=== PATIENT | male | born 1960 | race Caucasian/White ===

== ENCOUNTER → 2021-07-13 | Outpatient (CLI) | payer BC ==
--- NOTE | 2021-07-13 21:36 | CT ---
EXAMINATION TYPE: CT urogram wo/w con DATE OF EXAM: 07/13/2021 INDICATION: hematuria CT DLP: 1547.20 mGy.cm Automated Exposure Control for Dose Reduction was Utilized. TECHNIQUE AND CONTRAST: CT scan of the abdomen and pelvis is performed without and with IV Contrast, as per CT urogram protoc ol. The patient was injected with 100 mL of Isovue 300. 3-D reconstruction images were generated on a n independent workstation and reviewed. COMPARISON: None available FINDINGS: No radiodense urinary calculi. No hydroureter or hydronephrosis. 15 mm cyst is seen at the upper pole of right kidney with internal septation/density within. Recommend follow-up CT scan in 6 months. Unr emarkable kidneys otherwise. No definite filling defect within the renal collecting system or the ure ters. No gross ureteric lesion. Markedly enlarged heterogeneous prostate indenting and elevating the urinary bladder base, please cor relate with PSA level. Focal nodule is seen at the left side of the urinary bladder base measuring 6 x 8 mm which could represent a blood clot however urothelial lesion cannot be excluded. Recommend cor relation with urinalysis results (including cytology) and cystoscopy. No other definite urinary bladd er lesion. A few millimetric hepatic hypodensities, possibly representing hepatic cysts. Nondistended gallbladde r, possibly due to incomplete fasting. Unremarkable spleen and pancreas. Right adrenal lesion measuri ng up to 2.3 cm likely representing an adrenal adenoma. Focal thickening of the left adrenal which co uld also represent an adrenal adenoma. Scattered arterial atherosclerotic calcifications. Unremarkable nondistended stomach, duodenum and small bowel. Wall thickening of the colonic splenic f lexure and other segments of the colon, nonspecific, please correlate with colonoscopy results. No keane spicious lymphadenopathy or sizable ascites. Unremarkable lung bases. Marked degenerative changes at L5-S1. No gross aggressive bone lesion. IMPRESSION: 1. Right upper pole complex renal cyst as described above, for 6 months follow-up CT scan or further ultrasound assessment. 2. Markedly enlarged prostate, please correlate with PSA level. 3. Small nodule in the left urinary bladder base as described above, which could represent a blood cl ot however urothelial lesion cannot be excluded, please correlate with urinalysis results (including cytology) and cystoscopy results. Other multiple incidental findings as detailed above.
== END | disposition home or self-care (01) ==
LOC: RADCTMAIN 13:45
PROVIDERS: ATTEND Urology
DX: N28.1 Cyst of kidney, acquired (principal); N40.0 Benign prostatic hyperplasia without lower urinary tract symptoms; N28.89 Other specified disorders of kidney and ureter
CPT/HCPCS: 74178; 74400; Q9967

== ENCOUNTER → 2022-01-11 | Outpatient (CLI) | payer BC ==
[2022-01-11 16:19] LABS: African American GFR (CKD) >90 (>60 ml/min/1.73 sqM); Blood Urea Nitrogen 24 mg/dL (9-20); Non-African American GFR(CKD) >90 (>60 ml/min/1.73 sqM)
--- NOTE | 2022-01-12 14:43 | CT ---
EXAMINATION TYPE: CT abdomen wo/w con CT DLP: 1153 mGycm, Automated exposure control for dose reduction was used. DATE OF EXAM: 01/11/2022 4:39 PM COMPARISON: CT abdomen pelvis most recent from 07/13/2021 CLINICAL INDICATION:Male, 61 years old with history of D41.01; right renal mass TECHNIQUE: Axial CT of the abdomen. Sagittal and coronal reformats [facility] Contrast used:70 mL of Isovue 300 with IV Contrast, Oral contrast used: with Oral Contrast FINDINGS: LOWER CHEST: Chest wall intramuscular lipoma measuring up to 23 mm on the right. ABDOMEN LIVER: Unremarkable GALLBLADDER AND BILE DUCTS: Unremarkable. PANCREAS: Unremarkable. SPLEEN: Unremarkable. ADRENAL GLANDS: Unremarkable. KIDNEYS AND URETERS: A cyst in question in the right upper kidney measures 14 mm which is similar to prior given differences in measuring technique. No significant change from prior. There remains a pos sible thin internal septation. No additional solid masses definitively identified. No evidence of hyd ronephrosis or renal calculus. PELVIS BLADDER: Unremarkable REPRODUCTIVE: Unremarkable. ABDOMEN & PELVIS STOMACH AND BOWEL: No evidence of bowel obstruction. PERITONEUM: No evidence of pneumoperitoneum or free fluid. VASCULATURE: No evidence of aortic aneurysm. Atherosclerosis of the arterial vasculature. MUSCULOSKELETAL: No acute osseous abnormalities, multilevel disc degeneration changes are seen throug hout the spine most pronounced at L4-L5 with endplate spurring, vacuum disc phenomenon and endplate s clerosis. LYMPH NODES: No gross evidence for lymphadenopathy. SOFT TISSUE/ABDOMINAL WALL: Unremarkable IMPRESSION: Stable right upper pole renal cyst with possible thin internal septation versus 2 adjacent cysts. Fol low-up in 6 months is again recommended.
== END | disposition home or self-care (01) ==
LOC: RADCTMAIN 15:18
PROVIDERS: ATTEND Urology
DX: D41.01 Neoplasm of uncertain behavior of right kidney (principal); N28.1 Cyst of kidney, acquired
CPT/HCPCS: 82565; 84520; 74170; 36415; Q9967 ×2

== ENCOUNTER → 2022-07-22 | Outpatient (CLI) | payer BC ==
--- NOTE | 2022-07-23 18:31 | MR ---
EXAMINATION TYPE: MR Prostate wo/w con DATE OF EXAM: 07/22/2022 8:11 AM COMPARISON: CT 03/13/2022. CLINICAL INDICATION:Male, 62 years old with history of R97.20 ELEVATED PROSTATE SPECIFIC ANTIGEN; TECHNIQUE: Multi-planar, multi-sequence imaging of the pelvis is performed prior to and following the uncomplicated administration of bolus intravenous gadolinium. CONTRAST: 8.5 ml Gadavist Interpretive Criteria: PI-RADS v2.1 SERUM PSA: 6.8 04/21/2019 SURGICAL PATHOLOGY: No data available. FINDINGS: Prostatic dimensions: 6.0 x 5.8 x 4.0cm. Ellipsoid Volume:72.88 (PSA density=0.09 ng/mL/mL) CENTRAL GLAND (Central and Transition Zones/CZ+TZ): Multiple bilateral, heterogenous appearing hypertrophic stromal nodules, without suspicious lesion. M edian lobe hypertrophy with protrusion into the base of the bladder. (PI-RADS 2) PERIPHERAL ZONE (PZ): Bilateral linear, indistinct wedgelike areas of low ADC, and low T2 signal, No evidence of masslike a bnormality, or localized perfusional hypervascularity, to further suggest a focus of clinically signi ficant prostate cancer. (PI-RADS 2) SEMINAL VESICLES (SV): Symmetric and unremarkable. PERIPROSTATIC TISSUES: Unremarkable. LYMPH NODES: No enlarged pelvic lymph node. REMAINING PELVIS: Bladder wall is within normal limits given distention. No abnormal free or organized intrapelvic fluid collection. Questionable polyp in the rectum series 501 image 12. Sigmoid colonic diverticula OSSEOUS STRUCTURES: No suspicious osseous abnormality. IMPRESSION: 1. No specific features for high-risk prostate cancer. Maximum PI-RADS score: 2. 2. Moderate BPH, estimated gland volume 72.88 mL. 4. Questionable rectal polyp versus stool correlate with direct visualization/colonoscopy.
== END | disposition home or self-care (01) ==
LOC: RADMRIMAIN 07:13
PROVIDERS: ATTEND Urology
DX: N40.0 Benign prostatic hyperplasia without lower urinary tract symptoms (principal); R97.20 Elevated prostate specific antigen [PSA]
CPT/HCPCS: 72197; A9585